=== PATIENT | female | born 1955 | race Caucasian/White ===

== ENCOUNTER → 2019-07-16 | Day surgery (SDC) | payer MEDICAID ==
[~2019-07-16] VITALS: Ht 172.7 cm; Wt 52.6 kg
[~2019-07-16] MED LIST: ACET-2708 PO; BACITRACIN 50,000 UNITS/VIAL ONE; BUPIVACAINE/EPINEPH/PF 0.25%/0.0005 10ML ONE; CALC1CAP22 PO; CYCL10TA7 PO; EPINEPHRINE 1:1000 1 MG/ML AMP ONE; FERR325T6 PO; GABA800T97 MT; GENTAMICIN SULF 40MG/ML 2ML VIAL ONE; HYDR-4009 PO; LACTATED RINGERS 1,000 ML IV SCH; OMEP40CA12 PO; SULF-288 PO; THIA100T72 MT; TRAZ-252 PO; VANCOMYCIN HCL 1 GM/VIAL ONE
[2019-07-16 10:34] LABS: CLARITY URINE CLEAR (CLEAR); COLOR URINE YELLOW (YELLOW); KETONES URINE NEGATIVE (NEGATIVE); LEUKOCYTE ESTERASE URINE NEGATIVE (NEGATIVE); NITRITE URINE NEGATIVE (NEGATIVE); OCCULT BLOOD URINE NEGATIVE (NEGATIVE); PH URINE 7.5 (4.5-8.0); PROTEIN URINE NEGATIVE (NEGATIVE); SPECIFIC GRAVITY URINE 1.005 (1.005-1.030); UROBILINOGEN URINE 0.2 E.U./dL (0.2-1.0)
[2019-07-16 14:44] LABS: BASOPHILS % 0.3 % (0.0-2.0); HEMATOCRIT. 32.7 % (36.0-48.0); LYMPHOCYTES % 42.5 % (20.0-50.0); MEAN CORPUSCULAR HEMOGLOBIN 32.5 pg (28.0-32.0); MEAN CORPUSCULAR VOLUME 96.5 fL (81.0-99.0); MEAN PLATELET VOLUME 8.3 fl (7.4-10.4); MONOCYTES % 13.8 % (2.0-8.0); NEUTROPHILS % 40.4 % (40.0-76.0); PLATELET 137 x1000/uL (130-400); RED BLOOD CELL COUNT 3.39 mill/uL (4.2-5.4); RED CELL DISTRIBUTION WIDTH 13.9 % (11.6-14.6)
[2019-07-16 15:24] LABS: CHLORIDE 108 mEq/L (98-107)
== END | disposition home or self-care (01) ==
LOC: OR 06:16
PROVIDERS: ATTEND Orthopaedic Surgery
DX: M25.551 Pain in right hip (principal); Z53.8 Procedure and treatment not carried out for other reasons; K21.9 Gastro-esophageal reflux disease without esophagitis; M81.0 Age-related osteoporosis without current pathological fracture; F17.210 Nicotine dependence, cigarettes, uncomplicated; Z79.899 Other long term (current) drug therapy
CPT/HCPCS: 36415; 80048; 81003; 85025; 86850; 86900; 86901; J0171; J3370; J3490; J1580

== ENCOUNTER 2019-07-17 05:35 | Inpatient (IN) | payer MEDICAID ==
[~2019-07-17] VITALS: Ht 167.6 cm; Wt 57.2 kg
[~2019-07-17 05:35] MED LIST changes: -BACITRACIN 50,000 UNITS/VIAL ONE; -BUPIVACAINE/EPINEPH/PF 0.25%/0.0005 10ML ONE; -EPINEPHRINE 1:1000 1 MG/ML AMP ONE; -GENTAMICIN SULF 40MG/ML 2ML VIAL ONE; -LACTATED RINGERS 1,000 ML IV SCH; -VANCOMYCIN HCL 1 GM/VIAL ONE
[2019-07-17] MEDS ORDERED: MORPHINE SULFATE/PF 1MG/ML 10ML AMP ONE (06:07)
[2019-07-17] MEDS ORDERED: METHYLENE BLUE 50 MG/10 ML AMP IV ONE (06:07)
[2019-07-17] MEDS ORDERED: BUPIVACAINE/EPINEPH/PF 0.25%/0.0005 10ML ONE (06:08)
[2019-07-17] MEDS ORDERED: EPINEPHRINE 1:1000 1 MG/ML AMP ONE (06:08)
[2019-07-17] MEDS ORDERED: VANCOMYCIN HCL 1 GM/VIAL ONE (06:09)
[2019-07-17] MEDS ORDERED: BACITRACIN 50,000 UNITS/VIAL ONE (06:09)
[2019-07-17] MEDS ORDERED: LACTATED RINGERS 1,000 ML IV SCH (06:15)
[2019-07-17] MEDS ORDERED: TRANEXAMIC ACID 1,000 MG in SODIUM CHLORIDE 0.9% 100 ML IV STA (06:19)
[2019-07-17] MEDS ORDERED: FENTANYL CITRATE/PF 50MCG/ML 2ML VIAL ONE ×3 (07:03→08:09)
[2019-07-17] MEDS ORDERED: MIDAZOLAM HCL 2 MG/2 ML VIAL ONE (07:04)
[2019-07-17] MEDS ORDERED: PROPOFOL 200MG/20ML VIAL IV ONE (07:04)
[2019-07-17] MEDS ORDERED: ROCURONIUM BROMIDE 10MG/ML VIAL 5ML IV ONE (07:04)
[2019-07-17] MEDS ORDERED: SUCCINYLCHOLINE CHLORIDE 200MG/10ML IV ONE (07:04)
[2019-07-17] MEDS ORDERED: EPHEDRINE SULFATE 50MG/ML VIAL ONE (07:04)
[2019-07-17] MEDS ORDERED: NEOSTIGMINE METHYLSULFATE 1MG/ML 10 ML VIAL ONE (07:04)
[2019-07-17] MEDS ORDERED: LIDOCAINE HCL/PF 1% 10 MG/ML 5ML VIAL ONE (07:04)
[2019-07-17] MEDS ORDERED: SODIUM CHLORIDE 0.9% 10ML VIAL ONE (07:04)
[2019-07-17] MEDS ORDERED: CEFAZOLIN SODIUM 1000MG/VIAL ONE (07:04)
[2019-07-17] MEDS ORDERED: GLYCOPYRROLATE 0.2 MG/ML 2ML VIAL ONE (07:04)
[2019-07-17] MEDS ORDERED: ONDANSETRON HCL 4MG/2ML INJ ONE (07:05)
[2019-07-17] MEDS ORDERED: METOCLOPRAMIDE HCL 10MG/2ML VIAL ONE (07:05)
[2019-07-17] MEDS ORDERED: PHENYLEPHRINE HCL 10 MG/ML 1ML (IV VIAL) IV ONE (07:05)
[2019-07-17] MEDS ORDERED: MAGNESIUM HYDROXIDE 400MG/5ML 30ML UDC PO PRN (07:15)
[2019-07-17] MEDS ORDERED: HYDROCODONE/ACETAMINOPHEN 5/325MG TABLET PO PRN (07:15)
[2019-07-17] MEDS ORDERED: ONDANSETRON HCL 4MG/2ML INJ IV PRN ×2 (07:15→10:30)
[2019-07-17] MEDS ORDERED: ACETAMINOPHEN 325MG TABLET PO PRN (07:15)
[2019-07-17] MEDS ORDERED: CEFAZOLIN 2,000 MG in DEXT 5% WATER 100 ML IV SCH (07:15)
[2019-07-17] MEDS ORDERED: SULFAMETHOXAZOLE/TRIMETHOPRIM 800/160MG TABLET PO SCH (09:00)
[2019-07-17] MEDS ORDERED: SODIUM CHLORIDE 0.9% 1,000 ML IV ONE (10:26)
[2019-07-17] MEDS ORDERED: MORPHINE SULFATE 2 MG/ML CPJ (NOT FOR IM USE) IV PRN (10:30)
[2019-07-17] MEDS ORDERED: HYDROMORPHONE HCL/PF 2MG/ML CPJ IV PRN (10:30)
[2019-07-17] MEDS ORDERED: MEPERIDINE HCL/PF 25MG/ML CPJ IV PRN ×2 (10:30)
[2019-07-17] MEDS ORDERED: NALOXONE INJ IV PRN (11:45)
[2019-07-17] MEDS ORDERED: HYDROMORPHONE PCA 10MG/50ML IV PRN (11:45)
[2019-07-17] MEDS ORDERED: DIPHENHYDRAMINE INJ IV PRN (11:45)
[2019-07-17] MEDS ORDERED: ONDANSETRON INJ IV PRN (12:00)
[2019-07-17] MEDS: SULFAMETHOXAZOLE/TRIMETHOPRIM 400/80MG TAB PO SCH (15:00)
[2019-07-17 15:28] VITALS: BP 125/70
[2019-07-17 16:00] VITALS: BP 112/68
[2019-07-17] MEDS: DOCUSATE SODIUM 100MG CAPSULE PO SCH (16:34)
[2019-07-17] MEDS: CEFAZOLIN 2,000 MG in DEXT 5% WATER 100 ML IV SCH ×2 (16:35→23:25)
[2019-07-17] MEDS: CALCIUM CARBONATE 500MG TABLET CHEW PO SCH (17:38)
[2019-07-17] MEDS: FERROUS SULFATE 325MG TABLET PO SCH (17:39)
[2019-07-17 18:14] LABS: BASOPHILS % 0.1 % (0.0-2.0); EOSINOPHILS % 0.5 % (0.0-5.0); HEMATOCRIT. 24.5 % (36.0-48.0); HEMOGLOBIN. 8.2 g/dL (12.0-16.0); LYMPHOCYTES % 15.6 % (20.0-50.0); MEAN CORPUSCULAR HEMOGLOBIN 32.6 pg (28.0-32.0); MEAN CORPUSCULAR VOLUME 96.7 fL (81.0-99.0); MEAN PLATELET VOLUME 7.9 fl (7.4-10.4); NEUTROPHILS % 71.8 % (40.0-76.0); PLATELET 118 x1000/uL (130-400); RED BLOOD CELL COUNT 2.53 mill/uL (4.2-5.4); RED CELL DISTRIBUTION WIDTH 13.7 % (11.6-14.6)
[2019-07-17 18:19] LABS: CHLORIDE 109 mEq/L (98-107)
[2019-07-17 20:00] VITALS: BP 106/34
[2019-07-17] MEDS: OMEPRAZOLE 20MG CAPSULE EXTENDED RELEASE PO SCH (21:11)
[2019-07-17] MEDS: GABAPENTIN 400MG CAPSULE PO SCH (21:12)
[2019-07-17] MEDS: TRAZODONE HCL 50MG TABLET PO SCH (21:12)
[2019-07-17] MEDS: CYCLOBENZAPRINE 10MG TABLET PO SCH (21:13)
[2019-07-18] VITALS (8 sets, daily range): BP systolic 87–115; BP diastolic 42–56
[2019-07-18 06:10] LABS: HEMATOCRIT. 23.9 % (36.0-48.0); HEMOGLOBIN. 8.1 g/dL (12.0-16.0); MEAN CORPUSCULAR HEMOGLOBIN 33.1 pg (28.0-32.0); MEAN CORPUSCULAR VOLUME 97.5 fL (81.0-99.0); PLATELET 121 x1000/uL (130-400); RED BLOOD CELL COUNT 2.45 mill/uL (4.2-5.4); RED CELL DISTRIBUTION WIDTH 13.9 % (11.6-14.6)
[2019-07-18] MEDS: OMEPRAZOLE 20MG CAPSULE EXTENDED RELEASE PO SCH ×2 (06:20→21:51)
[2019-07-18] MEDS: GABAPENTIN 400MG CAPSULE PO SCH ×3 (06:20→21:41)
[2019-07-18 07:06] LABS: CHLORIDE 107 mEq/L (98-107)
[2019-07-18] MEDS: SULFAMETHOXAZOLE/TRIMETHOPRIM 400/80MG TAB PO SCH (08:38)
[2019-07-18] MEDS: DOCUSATE SODIUM 100MG CAPSULE PO SCH ×2 (08:39→16:56)
[2019-07-18] MEDS: FERROUS SULFATE 325MG TABLET PO SCH ×3 (08:39→17:53)
[2019-07-18] MEDS: THIAMINE HCL 100MG TABLET PO SCH (08:39)
[2019-07-18] MEDS: CALCIUM CARBONATE 500MG TABLET CHEW PO SCH ×2 (08:39→16:56)
[2019-07-18] MEDS: ENOXAPARIN 40MG/0.4ML SYR SUBCUT SCH (08:39)
[2019-07-18] MEDS ORDERED: TRAMADOL 50MG TABLET PO PRN (13:00)
[2019-07-18 14:14] LABS: PLATELET ESTIMATE SLIGHTLY DECREASED
[2019-07-18] MEDS: HYDROCODONE/ACETAMINOPHEN 5/325MG TABLET PO PRN (15:21)
[2019-07-18] MEDS ORDERED: SODIUM CHLORIDE 0.9% 250 ML IV NR (20:48)
[2019-07-18] MEDS: TRAZODONE HCL 50MG TABLET PO SCH (21:41)
[2019-07-18] MEDS: CYCLOBENZAPRINE 10MG TABLET PO SCH (21:42)
[2019-07-19] VITALS: BP 103/55
[2019-07-19 04:00] VITALS: BP 124/65
[2019-07-19] MEDS: OMEPRAZOLE 20MG CAPSULE EXTENDED RELEASE PO SCH ×2 (06:44→21:13)
[2019-07-19] MEDS: GABAPENTIN 400MG CAPSULE PO SCH ×3 (06:44→21:13)
[2019-07-19] MEDS: HYDROCODONE/ACETAMINOPHEN 5/325MG TABLET PO PRN ×2 (06:45→12:13)
[2019-07-19 06:58] LABS: HEMATOCRIT. 22.3 % (36.0-48.0); HEMOGLOBIN. 7.5 g/dL (12.0-16.0); MEAN CORPUSCULAR HEMOGLOBIN 32.6 pg (28.0-32.0); MEAN CORPUSCULAR VOLUME 96.7 fL (81.0-99.0); MEAN PLATELET VOLUME 8.1 fl (7.4-10.4); PLATELET 119 x1000/uL (130-400); RED BLOOD CELL COUNT 2.31 mill/uL (4.2-5.4); RED CELL DISTRIBUTION WIDTH 13.9 % (11.6-14.6)
[2019-07-19 07:33] LABS: CHLORIDE 109 mEq/L (98-107)
[2019-07-19 07:41] LABS: TOTAL IRON BINDING CAPACITY 257 ug/dL (250-450)
[2019-07-19] MEDS: FERROUS SULFATE 325MG TABLET PO SCH ×3 (07:50→17:04)
[2019-07-19 08:00] VITALS: BP 92/42
[2019-07-19] MEDS: ENOXAPARIN 40MG/0.4ML SYR SUBCUT SCH (08:50)
[2019-07-19] MEDS: CALCIUM CARBONATE 500MG TABLET CHEW PO SCH ×2 (08:50→17:04)
[2019-07-19] MEDS: THIAMINE HCL 100MG TABLET PO SCH (08:50)
[2019-07-19] MEDS: DOCUSATE SODIUM 100MG CAPSULE PO SCH ×2 (08:50→17:04)
[2019-07-19] MEDS: SULFAMETHOXAZOLE/TRIMETHOPRIM 400/80MG TAB PO SCH (08:52)
[2019-07-19] MEDS: SODIUM CHLORIDE 0.45% 1,000 ML IV SCH ×2 (09:30→22:01)
[2019-07-19] MEDS: LIDOCAINE 5% PATCH TOP SCH (12:02)
[2019-07-19 16:00] VITALS: BP 89/47
[2019-07-19 20:00] VITALS: BP 98/49
[2019-07-19] MEDS: CYCLOBENZAPRINE 10MG TABLET PO SCH (21:13)
[2019-07-19] MEDS: TRAZODONE HCL 50MG TABLET PO SCH (21:13)
[2019-07-20] VITALS: BP 108/57
[2019-07-20 04:00] VITALS: BP 105/59
[2019-07-20] MEDS: OMEPRAZOLE 20MG CAPSULE EXTENDED RELEASE PO SCH ×2 (06:23→21:03)
[2019-07-20] MEDS: GABAPENTIN 400MG CAPSULE PO SCH ×3 (06:23→21:04)
[2019-07-20] MEDS: HYDROCODONE/ACETAMINOPHEN 5/325MG TABLET PO PRN (06:37)
[2019-07-20 08:00] VITALS: BP 119/67
[2019-07-20 08:05] LABS: CHLORIDE 107 mEq/L (98-107)
[2019-07-20 08:07] LABS: BASOPHILS % 0.1 % (0.0-2.0); EOSINOPHILS % 1.8 % (0.0-5.0); HEMATOCRIT. 21.8 % (36.0-48.0); HEMOGLOBIN. 7.4 g/dL (12.0-16.0); LYMPHOCYTES % 15.5 % (20.0-50.0); MEAN CORPUSCULAR HEMOGLOBIN 32.8 pg (28.0-32.0); MEAN CORPUSCULAR VOLUME 96.6 fL (81.0-99.0); MEAN PLATELET VOLUME 8.2 fl (7.4-10.4); NEUTROPHILS % 71.6 % (40.0-76.0); PLATELET 147 x1000/uL (130-400); RED BLOOD CELL COUNT 2.26 mill/uL (4.2-5.4); RED CELL DISTRIBUTION WIDTH 13.6 % (11.6-14.6)
[2019-07-20] MEDS: DOCUSATE SODIUM 100MG CAPSULE PO SCH ×2 (09:28→17:00)
[2019-07-20] MEDS: CALCIUM CARBONATE 500MG TABLET CHEW PO SCH ×2 (09:28→17:00)
[2019-07-20] MEDS: SULFAMETHOXAZOLE/TRIMETHOPRIM 400/80MG TAB PO SCH (09:28)
[2019-07-20] MEDS: FERROUS SULFATE 325MG TABLET PO SCH ×2 (09:28→12:47)
[2019-07-20] MEDS: THIAMINE HCL 100MG TABLET PO SCH (09:28)
[2019-07-20] MEDS: ENOXAPARIN 40MG/0.4ML SYR SUBCUT SCH (09:31)
[2019-07-20] MEDS: LIDOCAINE 5% PATCH TOP SCH (09:46)
[2019-07-20 12:00] VITALS: BP 101/58
[2019-07-20] MEDS: SODIUM CHLORIDE 0.45% 1,000 ML IV SCH (12:45)
[2019-07-20 15:06] LABS: PLATELET ESTIMATE DECREASED
[2019-07-20 16:00] VITALS: BP 111/57
[2019-07-20] MEDS ORDERED: IRON SUCROSE COMPLEX 200 MG in SODIUM CHLORIDE 0.9% 100 ML IV SCH (17:00)
[2019-07-20] MEDS: IRON SUCROSE COMPLEX 100 MG/5 ML ML IV SCH (18:42)
[2019-07-20 20:00] VITALS: BP 107/52
[2019-07-20] MEDS: TRAZODONE HCL 50MG TABLET PO SCH (21:04)
[2019-07-20] MEDS: HYDROCORTISONE 1% CREAM 30GM TOP SCH (21:04)
[2019-07-20] MEDS: CYCLOBENZAPRINE 10MG TABLET PO SCH (21:04)
[2019-07-21] VITALS: BP 122/69
[2019-07-21] MEDS: ZOLPIDEM TARTRATE 5MG TABLET PO PRN ×2 (00:26→22:15)
[2019-07-21 04:00] VITALS: BP 140/74
[2019-07-21] MEDS: HYDROCODONE/ACETAMINOPHEN 5/325MG TABLET PO PRN (05:25)
[2019-07-21] MEDS: SODIUM CHLORIDE 0.45% 1,000 ML IV SCH ×2 (05:25→14:17)
[2019-07-21 06:10] LABS: BASOPHILS % 0.2 % (0.0-2.0); EOSINOPHILS % 2.2 % (0.0-5.0); HEMATOCRIT. 21.5 % (36.0-48.0); HEMOGLOBIN. 7.3 g/dL (12.0-16.0); LYMPHOCYTES % 19.5 % (20.0-50.0); MEAN CORPUSCULAR HEMOGLOBIN 32.5 pg (28.0-32.0); MEAN CORPUSCULAR VOLUME 95.1 fL (81.0-99.0); MEAN PLATELET VOLUME 7.8 fl (7.4-10.4); MONOCYTES % 14.6 % (2.0-8.0); NEUTROPHILS % 63.5 % (40.0-76.0); PLATELET 195 x1000/uL (130-400); RED BLOOD CELL COUNT 2.25 mill/uL (4.2-5.4); RED CELL DISTRIBUTION WIDTH 13.6 % (11.6-14.6)
[2019-07-21 06:18] LABS: CHLORIDE 106 mEq/L (98-107)
[2019-07-21] MEDS: GABAPENTIN 400MG CAPSULE PO SCH ×3 (06:21→22:15)
[2019-07-21] MEDS: OMEPRAZOLE 20MG CAPSULE EXTENDED RELEASE PO SCH ×2 (06:21→21:52)
[2019-07-21 08:00] VITALS: BP 110/61
[2019-07-21] MEDS: CALCIUM CARBONATE 500MG TABLET CHEW PO SCH ×2 (09:28→17:30)
[2019-07-21] MEDS: HYDROCORTISONE 1% CREAM 30GM TOP SCH ×2 (09:28→21:54)
[2019-07-21] MEDS: DOCUSATE SODIUM 100MG CAPSULE PO SCH ×2 (09:29→17:30)
[2019-07-21] MEDS: SULFAMETHOXAZOLE/TRIMETHOPRIM 400/80MG TAB PO SCH (09:29)
[2019-07-21] MEDS: THIAMINE HCL 100MG TABLET PO SCH (09:29)
[2019-07-21] MEDS: ENOXAPARIN 40MG/0.4ML SYR SUBCUT SCH (09:29)
[2019-07-21] MEDS: LIDOCAINE 5% PATCH TOP SCH (09:36)
[2019-07-21 12:00] VITALS: BP 122/73
[2019-07-21 16:00] VITALS: BP 123/72
[2019-07-21] MEDS: IRON SUCROSE COMPLEX 100 MG/5 ML ML IV SCH (17:30)
[2019-07-21 20:00] VITALS: BP 133/65
[2019-07-21] MEDS: CYCLOBENZAPRINE 10MG TABLET PO SCH (21:52)
[2019-07-21] MEDS: TRAZODONE HCL 50MG TABLET PO SCH (21:53)
[2019-07-22] VITALS: BP 133/76
[2019-07-22 04:00] VITALS: BP 125/73
[2019-07-22] MEDS: GABAPENTIN 400MG CAPSULE PO SCH ×2 (06:27→14:36)
[2019-07-22] MEDS: OMEPRAZOLE 20MG CAPSULE EXTENDED RELEASE PO SCH (06:27)
[2019-07-22 07:13] LABS: HEMATOCRIT. 21.1 % (36.0-48.0); HEMOGLOBIN. 7.3 g/dL (12.0-16.0); MEAN CORPUSCULAR HEMOGLOBIN 32.9 pg (28.0-32.0); MEAN CORPUSCULAR VOLUME 95.1 fL (81.0-99.0); MEAN PLATELET VOLUME 7.5 fl (7.4-10.4); PLATELET 237 x1000/uL (130-400); RED BLOOD CELL COUNT 2.22 mill/uL (4.2-5.4); RED CELL DISTRIBUTION WIDTH 13.6 % (11.6-14.6)
[2019-07-22 07:32] LABS: CHLORIDE 105 mEq/L (98-107)
[2019-07-22 08:00] VITALS: BP 141/79
[2019-07-22] MEDS: CALCIUM CARBONATE 500MG TABLET CHEW PO SCH (08:41)
[2019-07-22] MEDS: THIAMINE HCL 100MG TABLET PO SCH (08:41)
[2019-07-22] MEDS: SULFAMETHOXAZOLE/TRIMETHOPRIM 400/80MG TAB PO SCH (08:41)
[2019-07-22] MEDS: HYDROCORTISONE 1% CREAM 30GM TOP SCH (08:41)
[2019-07-22] MEDS: LIDOCAINE 5% PATCH TOP SCH (08:41)
[2019-07-22] MEDS: ENOXAPARIN 40MG/0.4ML SYR SUBCUT SCH (08:42)
[2019-07-22] MEDS: DOCUSATE SODIUM 100MG CAPSULE PO SCH (08:42)
[2019-07-22 12:00] VITALS: BP 141/79
[2019-07-22 13:46] VITALS: BP 137/86
[2019-07-22 17:34] LABS: PLATELET ESTIMATE NORMAL
== END 2019-07-22 17:01 | DRG 301 ==
LOC: OR 05:35 → 6EST 05:36
PROVIDERS: ADMIT Orthopaedic Surgery; ATTEND Orthopaedic Surgery
PROC: 0SR903A Replacement of Right Hip Joint with Ceramic Synthetic Substitute, Uncemented, Open Approach (ICD-10-PCS; principal; 2019-07-17)
DX: M16.11 Unilateral primary osteoarthritis, right hip (principal); D61.818 Other pancytopenia; I95.9 Hypotension, unspecified; B19.20 Unspecified viral hepatitis C without hepatic coma; D64.9 Anemia, unspecified; M81.0 Age-related osteoporosis without current pathological fracture; N39.0 Urinary tract infection, site not specified; K21.9 Gastro-esophageal reflux disease without esophagitis; M16.52 Unilateral post-traumatic osteoarthritis, left hip; L82.1 Other seborrheic keratosis; R63.6 Underweight; D50.9 Iron deficiency anemia, unspecified; R32 Unspecified urinary incontinence; Z87.440 Personal history of urinary (tract) infections; Z68.20 Body mass index [BMI] 20.0-20.9, adult
CPT/HCPCS: 36415; 73502; 80048; 80053; 82728; 83540; 83550; 85025; 88305; 88311; 97110; 97116; 97162; 97166; 97530; 97535; C1776; J0171; J0330; J0690; J1170; J1650; J2175; J2250; J2274; J2370; J2405; J2704; J2710; J2765; J3010; J3370; J3490; J7050; J7060; Q9968

== ENCOUNTER → 2022-09-11 | Day surgery (SDC) | payer MEDICARE, MEDICAID ==
[~2022-09-11] MED LIST changes: +CYCL10TA21 PO; -CYCL10TA7 PO; +IOHEXOL-300 50 ML BOTTLE IV ONE; +LIDOCAINE HCL 1% 10 MG/ML 10ML VIAL ONE; -OMEP40CA12 PO; +OMEP40CA20 PO; +SULF-13 PO; -SULF-288 PO
== END | disposition home or self-care (01) ==
LOC: RAD 08:25
PROVIDERS: ATTEND Orthopaedic Surgery
DX: M25.552 Pain in left hip (principal); Z96.641 Presence of right artificial hip joint; Z79.899 Other long term (current) drug therapy
CPT/HCPCS: 27093; 73525; J3490; Q9967; Z7610; 20611

== ENCOUNTER → 2022-10-09 | Outpatient (CLI) | payer MEDICARE, MEDICAID ==
[~2022-10-09] MED LIST changes: -IOHEXOL-300 50 ML BOTTLE IV ONE; -LIDOCAINE HCL 1% 10 MG/ML 10ML VIAL ONE
== END | disposition home or self-care (01) ==
LOC: RAD 13:48
PROVIDERS: ATTEND Orthopaedic Surgery
DX: M16.12 Unilateral primary osteoarthritis, left hip (principal)
CPT/HCPCS: 73721

== ENCOUNTER 2023-11-02 12:49 | Emergency (ER) | payer MEDICARE, OTHER ==
[~2023-11-02] VITALS: Ht 152.4 cm; Wt 45.0 kg
[~2023-11-02 12:49] MED LIST changes: -SULF-13 PO
[2023-11-02 13:00] VITALS: O2SAT 96
[2023-11-02 13:44] VITALS: BP 121/69; PULSE 103; RESP 20; TEMP 98.2
[2023-11-02] MEDS: ACETAMINOPHEN 325MG TABLET PO ONE (13:44)
[2023-11-02] MEDS: KETOROLAC 30MG/ML VIAL IM ONE (13:44)
[2023-11-02] MEDS ORDERED: IBUP-2028 MT (16:19)
== END 2023-11-02 19:02 | disposition home or self-care (01) ==
LOC: ER 13:09
DX: M25.521 Pain in right elbow (principal); Z98.890 Other specified postprocedural states; Z79.899 Other long term (current) drug therapy
CPT/HCPCS: 99284; 73080; 73090; 73110; 96372; J1885; A4565

== ENCOUNTER 2024-03-18 10:52 | Emergency (ER) | payer MEDICAID, MEDICARE ==
[~2024-03-18] VITALS: Ht 167.6 cm; Wt 70.0 kg
[~2024-03-18 10:52] MED LIST changes: +IBUP-2028 MT
[2024-03-18 11:04] VITALS: O2SAT 100
[2024-03-18] MEDS ORDERED: IBUP-2029 MT (12:36)
[2024-03-18] MEDS ORDERED: AMOX1TAB16 MT (12:36)
[2024-03-18] MEDS: IBUPROFEN 600MG TABLET PO ONE (13:05)
[2024-03-18 13:08] VITALS: BP 121/75; PULSE 80; RESP 20; TEMP 37.16964; O2SAT 100
== END 2024-03-18 13:16 | disposition home or self-care (01) ==
LOC: ER 11:22
DX: M25.552 Pain in left hip (principal); Z79.899 Other long term (current) drug therapy; Z98.890 Other specified postprocedural states
CPT/HCPCS: 73522; 73560; 99284

== ENCOUNTER 2024-03-27 12:54 | Emergency (ER) | payer MEDICAID, MEDICARE ==
[~2024-03-27 12:54] MED LIST changes: +AMOX1TAB16 MT; +IBUP-2029 MT
[2024-03-27 12:58] VITALS: PULSE 78; RESP 16; O2SAT 99
== END 2024-03-27 15:50 | disposition left against medical advice (07) ==
LOC: ER 13:13
DX: R19.7 Diarrhea, unspecified (principal); Z53.21 Procedure and treatment not carried out due to patient leaving prior to being seen by health care provider